=== PATIENT | male | born 1985 | race African-American/Black ===

== ENCOUNTER 2016-04-25 18:58 | Emergency (ER) | payer SELFPAY ==
[~2016-04-25] VITALS: Ht 188 cm; Wt 90.0 kg
[~2016-04-25 18:58] MED LIST: IBUP800T23 PO; OFLO.3%A LEFT EAR
[2016-04-25 19:03] VITALS: BP 129/75; PULSE 104; RESP 16; TEMP 98.4; O2SAT 97
[2016-04-25 20:45] VITALS: BP 134/59; PULSE 93; RESP 20; O2SAT 99
--- NOTE | 2016-04-25 21:06 | RADRPT ---
EXAM DATE/TIME: 04/25/2016 20:50 [facility] COMPARISON: No previous studies available for comparison. INDICATIONS : Chest pain that has worsened over time. MEDICAL HISTORY : None. SURGICAL HISTORY : None. ENCOUNTER: Initial ACUITY: 1 month PAIN SCORE: 10/10 LOCATION: middle chest. FINDINGS: 2 portable frontal views of the chest demonstrate the lungs to be symmetrically aerated without evide nce of mass, infiltrate or effusion. The cardiomediastinal contours are unremarkable. Osseous struc tures are intact. CONCLUSION: No acute disease. Dmitri Quiroz Jr., MD on April 25, 2016 at 21:04 Board Certified Radiologist. This report was verified electronically.
--- NOTE | 2016-04-25 22:09 | PD ---
HPI Chief Complaint: Chest Pain Time Seen by Provider: 20:41 Travel History International Travel<30 days: No Contact w/Intl Traveler<30days: No Traveled to known affect area: No History of Present Illness HPI Patient is a 30 yo AAM presenting to [facility] ED complaining of chest wall tenderness. He states he was [place] in [place] and felt like he pulled a muscle in his anterior chest wall. He states the pain gradually subsided over several days to the point where to tried to exercise again. Two days ago while doing 1,000 push ups he felt the same sharp pain but this time it feels worse 10/10 on the pain scale. He points to his anterior chest wall just to the right of the xiphoid process as the site of his pain. He notes no deformities or bruising in the area. He has never had an injury like this before. Nothing makes the pain better He takes no meds and has no health conditions that he is aware of. He does report a history of cardiac issues on both sides of the family. No personal hx structural heart disease. PFSH Past Medical History Medical History: Denies Significant Hx Diminished Hearing: No Tetanus Vaccination: > 5 Years Influenza Vaccination: No Past Surgical History Other Surgery: Yes (DENTAL SURGERY) Social History Alcohol Use: Yes (SOCIALLY) Tobacco Use: Yes (SOCIALLY, CIGARS) Substance Use: No Allergies-Medications (Allergen,Severity, Reaction): Coded Allergies: No Known Allergies (Unverified , 04/25/16) Reported Meds & Prescriptions Reported Meds & Active Scripts Active No Active Prescriptions or Reported Medications Review of Systems Except as stated in HPI: all other systems reviewed are Neg Cardiovascular: Positive: Chest Pain or Discomfort Physical Exam Narrative GENERAL: Patient is a well nourished well developed 30 yo AAM in apparent pain. SKIN: Warm and dry. HEAD: Atraumatic. Normocephalic. EYES: Pupils equal and round. No scleral icterus. No injection or drainage. ENT: No nasal bleeding or discharge. Mucous membranes pink and moist. NECK: Trachea midline. No JVD. CARDIOVASCULAR: Regular rate and rhythm. RESPIRATORY: No accessory muscle use. Clear to auscultation. Breath sounds equal bilaterally. GASTROINTESTINAL: Abdomen soft, non-tender, nondistended. Hepatic and splenic margins not palpable. MUSCULOSKELETAL: Extremities without clubbing, cyanosis, or edema. No obvious deformities. TTP palpation of inferior chest wall just right of midline NEUROLOGICAL: Awake and alert. No obvious cranial nerve deficits. Motor grossly within normal limits. Five out of 5 muscle strength in the arms and legs. Normal speech. PSYCHIATRIC: Appropriate mood and affect; insight and judgment normal. Data Data Last Documented VS Vital Signs Date Time Temp Pulse Resp B/P Pulse Ox O2 Delivery O2 Flow Rate FiO2 04/25/16 20:45 93 20 134/59 99 Room Air 04/25/16 19:03 98.4 Orders Chest, Single Ap (04/25/16 ) Electrocardiogram (04/25/16 ) MDM Medical Decision Making Medical Screen Exam Complete: Yes Emergency Medical Condition: Yes Differential Diagnosis NSTEMI, unstable angina, coronary vasospasm, PE, PTX, aortic dissection, pericarditis, myocarditis, endocarditis, PNA, esophageal disease, aneurysm, musculoskeletal etiologies, anxiety, cocaine/sympathomimetic abuse Narrative Course Patient is 30 yo AA male presenting with anterior chest wall pain after intense exercise two days ago. Tender to palpation non radiating. Chest x-ray was reviewed and negative for acute cardio/pulmonary pathology EKG revealed NSR rate 86 normal axis/intervals, no TWI/TWF Ibuprofen 400mg PO TID Rest x 2 weeks Procedures Procedure Narrative Last Impressions Chest X-Ray 04/25/16 0000 Signed Impressions: Service Date/Time: Monday, April 25, 2016 20:50 - CONCLUSION: No acute disease. Dmitri Quiroz Jr., MD Diagnosis Primary Impression: Chest pain Qualified Code: R07.89 - Other chest pain Referrals: Primary Care Physician 1 week Additional Instructions: You have a choice when it comes to health care, and we are glad that you chose [facility]. Hopefully, we have met your expectations on today's visit. You are welcome to return to [facility] at any time, as we are committed to meeting the health care needs of our community. Med/Other Pt SpecificInfo: Prescription(s) given Scripts Ibuprofen (Advil)200 Mg [id number] Mg PO Q8H PRN (PAIN SCALE 4 TO 10) #30 TAB Ref 0 Prov:Bill Brunner MD 04/25/16 Disposition: 01 DISCHARGE HOME Condition: Stable Bill Brunner MD Apr 25, 2016 22:09
[2016-04-25] MEDS ORDERED: IBUP-988 PO (22:10)
[2016-04-25] MEDS ORDERED: IBUPROFEN 400 MG TAB PO ONE (22:15)
--- NOTE | 2016-04-26 05:36 | EKG ---
Date Performed: 04/25/2016 Time Performed: 20:48:39 PTAGE: 30 years EKG: Sinus rhythm NORMAL ECG NO PREVIOUS TRACING DOCTOR: Gavino Mortensen Interpretating Date/Time 04/26/2016 05:36:10
== END 2016-04-25 22:30 | disposition home or self-care (01) ==
LOC: NEPC 18:58
DX: R07.89 Other chest pain (principal); Z72.0 Tobacco use
CPT/HCPCS: 71010; 93005

== ENCOUNTER 2016-12-19 08:00 | Emergency (ER) | payer SELFPAY ==
[~2016-12-19] VITALS: Ht 188 cm; Wt 100.0 kg
[~2016-12-19 08:00] MED LIST changes: +IBUP-988 PO; -IBUP800T23 PO; -OFLO.3%A LEFT EAR
[2016-12-19 08:01] VITALS: BP 141/82; PULSE 87; RESP 16; TEMP 98.3; O2SAT 100
--- NOTE | 2016-12-19 08:36 | PD ---
HPI Chief Complaint: Pain: Acute or Chronic Time Seen by Provider: 08:36 Travel History International Travel<30 days: No Contact w/Intl Traveler<30days: No Traveled to known affect area: No History of Present Illness HPI 31-year-old male presents emergency Department requesting evaluation of his right ankle with complaint of continued right ankle pain after having right ankle surgery by Dr. Borrego 10 weeks ago. He has not followed up with Dr. Borrego since after the surgery. He says he has tried to call and make an appointment and has been getting the "run around ." He also says he cannot afford to pay for the follow-up appointment. He took his splint off by himself after 8 weeks from the date of the surgery and then reapplied a part of the splint and an Adin bandage on his own. Says he's been ambulatory on the affected extremity since he removed the splint 8 weeks ago. Has been using a walker for support. Denies paresthesias, loss of sensation to the affected extremity. Has not been taking any medications or tried any treatments to alleviate his symptoms. Symptoms are moderate in severity. Has no medical complaints. No known allergies. No other modifying factors or associated signs and symptoms. History Past Medical Histgory Medical History: Denies Significant Hx Tetanus Vaccination: > 5 Years Social History Alcohol Use: Yes (EVERY OTHER DAY ) Tobacco Use: Yes (BLACK AND MILDS) Allergies-Medications (Allergen,Severity, Reaction): Coded Allergies: No Known Allergies (Unverified , 12/19/16) Reported Meds & Prescriptions Reported Meds & Active Scripts Active No Active Prescriptions or Reported Medications Review of Systems Except as stated in HPI: all other systems reviewed are Neg Physical Exam Narrative GENERAL: Well-nourished, well-developed black male patient, in no acute distress SKIN: Warm and dry. HEAD: Atraumatic. Normocephalic. EYES: Pupils equal and round. No scleral icterus. No injection or drainage. ENT: Mucosa pink and moist. Airway patent. NECK: Trachea midline. CARDIOVASCULAR: Regular rate. RESPIRATORY: No accessory muscle use. GASTROINTESTINAL: Rounded. MUSCULOSKELETAL: Right ankle with soft mesh splint and Adin bandage in place: I did not remove the splint. Toes are pink and warm and with sensory intact; 2 + pedal pulse. No Cyanosis. No clubbing. NEUROLOGICAL: Awake and alert. Oriented 3. No obvious cranial nerve deficits. Motor grossly within normal limits. Normal speech. PSYCHIATRIC: Appropriate mood and affect; insight and judgment normal. Data Data Last Documented VS Vital Signs Date Time Temp Pulse Resp B/P (MAP) Pulse Ox O2 Delivery O2 Flow Rate FiO2 12/19/16 08:01 98.3 87 16 141/82 (101) 100 MDM Medical Screen Exam Complete: Yes Emergency Medical Condition: No Differential Diagnosis Postop ankle pain Narrative Course This is a 31-year-old male who had surgery to his right ankle by Dr. Borrego 10 weeks ago and has not followed up postop. He is requesting reevaluation of his ankle. He removed his postop splint on his own and reapplied his own splint 8 weeks after the surgery. He has been ambulatory on the affected extremity with use of a walker for support since 8 weeks after the surgery. Toes are pink and warm and with sensory intact and I was able to palpate a 2+ pedal pulse. I called Dr. Borrego's office and made an appointment for the patient to follow up today at 2 PM. The patient was provided with the appointment time, the address and phone number to the office. Instructed the patient to follow up with Dr. Borrego today at his scheduled appointment. Vital signs are stable and the patient is stable for outpatient follow-up and treatment. The pateint has no urgent or emergent medical complaints. There is no emergent or urgent medical need at this time. I instructed the patient to follow up with thier primary care provider. A medical screening exam was performed: At the time of evaluation the presenting medical condition was determined not to be of an emergent nature. The patient was given the option of receiving additional care, but declined. Patient was given options for additional community resources from which to obtain care. The Patient Has Been advised to seek medical attention for their presenting complaint. The patient has been advised to return to the ER at any time if an emergent condition develops. Primary Impression: Encounter for medical screening examination Scripts No Active Prescriptions or Reported Meds Condition: Stable Елена Dhaliwal Dec 19, 2016 08:36
== END 2016-12-19 08:45 | disposition left against medical advice (07) ==
LOC: NEPK 08:00
DX: Z00.00 Encounter for general adult medical examination without abnormal findings (principal)
CPT/HCPCS: 99281